=== PATIENT | male | born 1965 | race Asian ===

== ENCOUNTER 2022-08-21 15:48 | Outpatient (CLI) | payer BC, SELFPAY ==
--- NOTE | 2022-08-21 | USR_ITS ---
PROCEDURE INFORMATION: Exam: US Duplex Left Lower Extremity Veins, Limited Exam date and time: 08/21/2022 4:37 PM Age: 57 years old Clinical indication: Pain; Leg, lower; Left; Additional info: Lle pain and swelling TECHNIQUE: Imaging protocol: Real-time duplex ultrasound of the Left extremity with 2-D ramachandran scale, color Doppler flow and spectral waveform analysis including responses to compression and other maneuvers (when performed) with image documentation. Limited exam focused on the left lower extremity veins. COMPARISON: No relevant prior studies available. FINDINGS: Left deep veins: Occlusive deep vein thrombosis is seen within the left leg from the common femoral vein to the left popliteal vein and left peroneal vein. This is manifested by lack of compressibility along with lack of spontaneous venous Doppler signal or flow. This also involves the visualized profunda femoral vein Left superficial veins: Greater saphenous vein appears patent.. Soft tissues: Unremarkable US/CV venous duplex [facility] [id number] IMPRESSION: Abnormal venous Doppler examination of the left lower extremity, with occlusive deep vein thrombosis from the common femoral vein to the peroneal vein.
== END 2022-08-21 15:49 | disposition home or self-care (01) ==
PROVIDERS: Visit Provider Family Medicine
DX: M79.605 Pain in left leg (principal); M79.89 Other specified soft tissue disorders; R93.6 Abnormal findings on diagnostic imaging of limbs
CPT/HCPCS: 93971